=== PATIENT | female | born 1980 | race Caucasian/White ===

== ENCOUNTER 2016-11-26 16:56 | Outpatient (CLI) | payer OTHER ==
[~2016-11-26 16:56] MED LIST: CLARITAN; LAMO50TA PO; VENL150C2 PO
== END 2016-11-26 18:53 | disposition home or self-care (01) ==
LOC: SRD 16:56
PROVIDERS: ATTEND Orthopaedic Surgery
DX: M17.11 Unilateral primary osteoarthritis, right knee (principal)
CPT/HCPCS: 73564

== ENCOUNTER 2016-12-11 16:51 | Outpatient (CLI) | payer OTHER | END 2016-12-11 19:26 | disposition home or self-care (01) | LOC: SCT 16:51 | PROVIDERS: ATTEND Orthopaedic Surgery | DX: M23.41 Loose body in knee, right knee (principal); M25.461 Effusion, right knee; M17.11 Unilateral primary osteoarthritis, right knee; M25.761 Osteophyte, right knee | CPT/HCPCS: 73565; 73700-TC ==

== ENCOUNTER 2016-12-21 12:50 | Outpatient (CLI) | payer OTHER ==
[2016-12-21] MEDS ORDERED: methylPREDNISolone ACETATE 80 MG/ML ONE (13:34)
[2016-12-21] MEDS ORDERED: BUPIVACAINE /PF 0.25% 30 ML VIAL INJ ONE (13:35)
[2016-12-21] MEDS ORDERED: IOHEXOL 50 ML IV ONE (13:35)
[2016-12-21] MEDS ORDERED: LIDOCAINE 1%, 20 ML MDV 20 ML ONE (14:28)
== END 2016-12-21 19:44 | disposition home or self-care (01) ==
LOC: SRD 12:50
PROVIDERS: ATTEND Orthopaedic Surgery
DX: M17.11 Unilateral primary osteoarthritis, right knee (principal); Z87.828 Personal history of other (healed) physical injury and trauma
CPT/HCPCS: 73580; J1040; J2001; J3490; Q9967

== ENCOUNTER 2017-01-15 12:15 | Outpatient (CLI) | payer OTHER | END 2017-01-15 19:07 | disposition home or self-care (01) | LOC: SCA 12:15 | DX: I08.1 Rheumatic disorders of both mitral and tricuspid valves (principal); R06.00 Dyspnea, unspecified; I27.2 Other secondary pulmonary hypertension | CPT/HCPCS: 93306 ==

== ENCOUNTER 2017-01-29 13:47 | Outpatient (CLI) | payer OTHER ==
[2017-01-29 15:44] LABS: BASOPHILS % (AUTO) 0.4 % (0.0-2.0); EOSINOPHILS # (AUTO) 0.1 K/uL (0.0-0.4); EOSINOPHILS % (AUTO) 1.7 % (0.0-4.0); HEMATOCRIT 45.9 % (36-48); HEMOGLOBIN 14.9 g/dL (12.0-16.0); LYMPHOCYTES # (AUTO) 1.8 K/uL (1.0-5.5); LYMPHOCYTES % (AUTO) 32.1 % (20.5-51.5); MEAN CORPUSCULAR HEMOGLOBIN 28 pg (27-31); MEAN CORPUSCULAR HGB CONC 33 % (32-36); MEAN CORPUSCULAR VOLUME 85 fL (79.0-98.0); MONOCYTES # (AUTO) 0.2 K/uL (0.0-1.0); MONOCYTES % (AUTO) 4.1 % (1.7-9.3); NEUTROPHILS # (AUTO) 3.5 K/uL (1.8-7.7); NEUTROPHILS % (AUTO) 61.7 % (40.0-70.0); PLATELET COUNT (AUTO) 293 K/uL (130-430); RED BLOOD CELL COUNT(AUTO) 5.39 MIL/uL (4.2-6.2); RED CELL DISTRIBUTION WIDTH 13.1 % (9.0-15.0); WHITE BLOOD COUNT (AUTO) 5.6 K/uL (4.8-10.8)
[2017-01-29 16:13] LABS: ALBUMIN 4.4 g/dL (3.4-4.8); CALCIUM 9.3 mg/dL (8.4-11.0); CREATININE 0.83 mg/dL (0.55-1.30); POTASSIUM 4.1 mmol/L (3.5-5.1); THYROID STIMULATING HORMONE 1.16 uIu/mL (0.34-4.82); TOTAL BILIRUBIN 0.6 mg/dL (0.0-1.0); TOTAL PROTEIN, SERUM 8.4 g/dL (6.4-8.3)
[2017-01-29 16:30] LABS: ERYTHROCYTE SEDIMENTATION RATE 4 MM/HR (0-20)
== END 2017-01-29 19:36 | disposition home or self-care (01) ==
LOC: SLB 13:47
DX: I10 Essential (primary) hypertension (principal); R53.83 Other fatigue; R06.00 Dyspnea, unspecified
CPT/HCPCS: 36415; 80053; 80061; 82306; 84443-TC; 85025; 85651-TC; 86140